=== PATIENT | female | born 1995 | race Caucasian/White ===

== ENCOUNTER 2021-09-24 06:49 | Emergency (ER) | payer OTHER ==
[~2021-09-24] VITALS: Ht 160 cm; Wt 111.1 kg
[~2021-09-24 06:49] MED LIST: AMOXICILLIN875 MG PO; AURALGAN EAR DR14 ML OTIC; NYQUIL D COLD295 ML; ROBITUSSIN COL1 EACH
[2021-09-24 10:24] VITALS: BP 143/111
== END 2021-09-24 10:27 | disposition home or self-care (01) ==
LOC: M.ERS 06:49
DX: M54.2 Cervicalgia (principal); Z53.21 Procedure and treatment not carried out due to patient leaving prior to being seen by health care provider